=== PATIENT | male | born 1970 ===

== ENCOUNTER 2021-03-26 08:20 | Inpatient (IN) ==
[~2021-03-26 08:20] MED LIST: CYTARABINE IVPB SCH; NS 0.9% IVPB SCH
[2021-03-26] MEDS ORDERED: Ondansetron ODT 4 mg TAB 4 MG TAB PO PRN (09:33)
[2021-03-26] MEDS: prednisoLONE 1% OPHTH.SUSP 5 ML OPHTH.SUSP BOTH EYES SCH ×6 (17:23→22:09)
[2021-03-26] MEDS ORDERED: CYTARABINE IVPB ONE (21:00)
[2021-03-26] MEDS ORDERED: NS 0.9% IVPB ONE (21:00)
[2021-03-27 05:38] LABS: ABS Lymphocytes 0.1 10^3/ul (1.0-4.8); ABS Monocytes 0.7 10^3/ul (0-0.8); ABS Neutrophils 16.8 10^3/ul (1.5-7.7); Hematocrit 40 % (42-52); Hemoglobin 14.1 g/dL (14.0-18.0); Lymphocyte % 0.8 %; Mean Corpuscular HGB Conc 35 g/dL (31-36); Mean Corpuscular Hemoglobin 33 pg (27-31); Mean Corpuscular Volume 94 fL (80-94); Mean Platelet Volume 6.5 fL (7.4-10.4); Platelet Count 275 10^3/uL (150-450); Red Blood Count 4.29 10^6 /uL (4.18-5.48); Red Cell Distribution Width 15 % (10-15); White Blood Count 17.7 10^3/uL (3.5-10.8)
[2021-03-27 05:52] LABS: Albumin 3.9 g/dL (3.2-5.2); Albumin/Globulin Ratio 1.8 (1-3); Calcium 8.7 mg/dL (8.6-10.3); Globulin 2.2 g/dL (2-4); Potassium 4.5 mmol/L (3.5-5.0); Total Bilirubin 0.8 mg/dL (0.2-1.0); Total Protein 6.1 g/dL (6.4-8.9)
[2021-03-27 07:50] VITALS: BP 113/69
[2021-03-27] MEDS: prednisoLONE 1% OPHTH.SUSP 5 ML OPHTH.SUSP BOTH EYES SCH (07:58)
[2021-03-27] MEDS ORDERED: Sulfamethox/Trimethoprim DS TAB 800/160 mg PO SCH (09:00)
== END 2021-03-27 12:30 | disposition home or self-care (01) | DRG 696 ==
LOC: CHOA 08:20 → MEDTELE 08:20
PROVIDERS: ADMIT Internal Medicine Medical Oncology; ATTEND Internal Medicine Medical Oncology

== ENCOUNTER 2021-04-17 07:25 | Inpatient (IN) ==
[~2021-04-17 07:25] MED LIST changes: +[UNRECOGNIZED DRUG - OTHER] IVPB SCH
[2021-04-17] MEDS ORDERED: NS 0.9% 1000 ml BAG 1,000 ML IV SCH (09:15)
[2021-04-17 11:09] LABS: Rapid COVID-19 Molecular Undetected (Undetected)
[2021-04-17] MEDS ORDERED: Ondansetron ODT 4 mg TAB 4 MG TAB PO PRN (13:16)
[2021-04-17] MEDS ORDERED: Sulfamethox/Trimethoprim DS TAB 800/160 mg PO SCH (17:00)
[2021-04-17] MEDS ORDERED: NS 0.9% IVPB ONE (20:00)
[2021-04-17] MEDS ORDERED: CYTARABINE IVPB ONE (20:00)
[2021-04-17] MEDS: prednisoLONE 1% OPHTH.SUSP 5 ML OPHTH.SUSP BOTH EYES SCH (22:04)
[2021-04-18] MEDS: prednisoLONE 1% OPHTH.SUSP 5 ML OPHTH.SUSP BOTH EYES SCH ×2 (02:48→08:20)
[2021-04-18 04:44] LABS: Calcium 8.8 mg/dL (8.6-10.3); Potassium 4.6 mmol/L (3.5-5.0)
[2021-04-18] MEDS ORDERED: NS 0.9% 1000 ml BAG 1,000 ML IV SCH (09:22)
[2021-04-18] MEDS ORDERED: NS 0.9% 1000 ml BAG 1,000 ML IV ONE (09:22)
[2021-04-18 11:17] VITALS: BP 114/63
== END 2021-04-18 11:55 | disposition home or self-care (01) | DRG 696 ==
LOC: CHOA 07:25 → MEDTELE 09:05
PROVIDERS: ADMIT Internal Medicine Hematology & Oncology; ATTEND Internal Medicine Medical Oncology

== ENCOUNTER 2021-05-07 07:39 | Inpatient (IN) ==
[~2021-05-07 07:39] MED LIST changes: -[UNRECOGNIZED DRUG - OTHER] IVPB SCH
[2021-05-07 11:11] LABS: Rapid COVID-19 Molecular Undetected (Undetected)
[2021-05-07] MEDS ORDERED: Ondansetron ODT 4 mg TAB 4 MG TAB PO PRN (11:26)
[2021-05-07] MEDS: NS 0.9% 1000 ml BAG 1,000 ML IV SCH (17:46)
[2021-05-07] MEDS: prednisoLONE 1% OPHTH.SUSP 5 ML OPHTH.SUSP BOTH EYES SCH ×2 (17:46→23:48)
[2021-05-07] MEDS ORDERED: NS 0.9% IVPB ONE (20:00)
[2021-05-07] MEDS ORDERED: CYTARABINE IVPB ONE (20:00)
[2021-05-08 04:42] LABS: Hematocrit 33 % (42-52); Hemoglobin 11.6 g/dL (14.0-18.0); Mean Corpuscular HGB Conc 35 g/dL (31-36); Mean Corpuscular Hemoglobin 34 pg (27-31); Mean Corpuscular Volume 98 fL (80-94); Mean Platelet Volume 6.7 fL (7.4-10.4); Platelet Count 364 10^3/uL (150-450); Red Blood Count 3.41 10^6 /uL (4.18-5.48); Red Cell Distribution Width 19 % (10-15); White Blood Count 25.1 10^3/uL (3.5-10.8)
[2021-05-08 04:53] LABS: ABS Lymphocytes 0.2 10^3/ul (1.0-4.8); ABS Monocytes 0.6 10^3/ul (0-0.8); ABS Neutrophils 24.3 10^3/ul (1.5-7.7)
[2021-05-08 04:58] LABS: Albumin 3.7 g/dL (3.2-5.2); Albumin/Globulin Ratio 2.1 (1-3); Calcium 8.5 mg/dL (8.6-10.3); Globulin 1.8 g/dL (2-4); Potassium 4.1 mmol/L (3.5-5.0); Total Bilirubin 0.7 mg/dL (0.2-1.0); Total Protein 5.5 g/dL (6.4-8.9)
[2021-05-08] MEDS: prednisoLONE 1% OPHTH.SUSP 5 ML OPHTH.SUSP BOTH EYES SCH ×2 (05:46→12:54)
[2021-05-08] MEDS ORDERED: NS 0.9% 1000 ml BAG 1,000 ML IV ONE (09:00)
[2021-05-08] MEDS ORDERED: Sulfamethox/Trimethoprim DS TAB 800/160 mg PO SCH (09:00)
[2021-05-08] MEDS: NS 0.9% 1000 ml BAG 1,000 ML IV SCH (09:42)
[2021-05-08 11:54] VITALS: BP 124/78
== END 2021-05-08 13:00 | disposition home or self-care (01) | DRG 696 ==
LOC: CHOA 07:39 → MEDTELE 09:20
PROVIDERS: ADMIT Internal Medicine Medical Oncology; ATTEND Nurse Practitioner Family

== ENCOUNTER 2021-05-29 07:31 | Inpatient (IN) ==
[~2021-05-29 07:31] MED LIST changes: +D5W IVPB SCH; +OXALIPLATIN IVPB SCH; +RITUXIMAB ABBS IVPB SCH
[2021-05-29] MEDS ORDERED: NS 0.9% 1000 ml BAG 1,000 ML IV SCH (09:00)
[2021-05-29] MEDS ORDERED: Ondansetron ODT 4 mg TAB 4 MG TAB PO PRN (13:35)
[2021-05-29] MEDS ORDERED: Sulfamethox/Trimethoprim DS TAB 800/160 mg PO SCH (14:00)
[2021-05-29 14:23] LABS: Hematocrit 34 % (42-52); Hemoglobin 11.9 g/dL (14.0-18.0); Mean Corpuscular HGB Conc 36 g/dL (31-36); Mean Corpuscular Hemoglobin 36 pg (27-31); Mean Corpuscular Volume 100 fL (80-94); Mean Platelet Volume 6.5 fL (7.4-10.4); Platelet Count 402 10^3/uL (150-450); Red Blood Count 3.35 10^6 /uL (4.18-5.48); Red Cell Distribution Width 21 % (10-15); White Blood Count 30.3 10^3/uL (3.5-10.8)
[2021-05-29 14:38] LABS: Rapid COVID-19 Molecular Undetected (Undetected)
[2021-05-29 14:42] LABS: Albumin 4.1 g/dL (3.2-5.2); Calcium 9.5 mg/dL (8.6-10.3); Globulin 2.1 g/dL (2-4); Potassium 3.9 mmol/L (3.5-5.0); Total Bilirubin 0.7 mg/dL (0.2-1.0); Total Protein 6.2 g/dL (6.4-8.9); eGFR CKD-EPI 106.5 (>60)
[2021-05-29 15:14] LABS: ABS Lymphocytes 0.4 10^3/ul (1.0-4.8); ABS Monocytes 0.8 10^3/ul (0-0.8); ABS Neutrophils 29.1 10^3/ul (1.5-7.7); Lymphocyte % 1.2 %
[2021-05-29] MEDS: prednisoLONE 1% OPHTH.SUSP 5 ML OPHTH.SUSP BOTH EYES SCH (17:44)
[2021-05-29] MEDS ORDERED: CYTARABINE IVPB ONE (19:30)
[2021-05-29] MEDS ORDERED: NS 0.9% IVPB ONE (19:30)
[2021-05-30] MEDS: prednisoLONE 1% OPHTH.SUSP 5 ML OPHTH.SUSP BOTH EYES SCH ×2 (02:46→06:48)
[2021-05-30 07:58] VITALS: BP 105/61
[2021-05-30 08:39] LABS: Hematocrit 36 % (42-52); Hemoglobin 12.5 g/dL (14.0-18.0); Mean Corpuscular HGB Conc 35 g/dL (31-36); Mean Corpuscular Hemoglobin 35 pg (27-31); Mean Corpuscular Volume 100 fL (80-94); Mean Platelet Volume 6.8 fL (7.4-10.4); Platelet Count 473 10^3/uL (150-450); Red Blood Count 3.58 10^6 /uL (4.18-5.48); Red Cell Distribution Width 21 % (10-15); White Blood Count 29.7 10^3/uL (3.5-10.8)
[2021-05-30 08:55] LABS: Albumin 4.1 g/dL (3.2-5.2); Albumin/Globulin Ratio 1.9 (1-3); Globulin 2.2 g/dL (2-4); Potassium 4.4 mmol/L (3.5-5.0); Total Bilirubin 0.6 mg/dL (0.2-1.0); Total Protein 6.3 g/dL (6.4-8.9); eGFR CKD-EPI 100.1 (>60)
[2021-05-30] MEDS ORDERED: Dexamethasone Oral Solution 1 MG/ML 10 ML UDC (10 MG) PO SCH (09:00)
[2021-05-30] MEDS ORDERED: NS 0.9% 1000 ml BAG 1,000 ML IV ONE (09:00)
[2021-05-30 09:14] LABS: ABS Basophils 0.2 10^3/ul (0-0.2); ABS Lymphocytes 0.3 10^3/ul (1.0-4.8); ABS Monocytes 1.7 10^3/ul (0-0.8); ABS Neutrophils 27.5 10^3/ul (1.5-7.7); Lymphocyte % 0.9 %
== END 2021-05-30 11:05 | disposition home or self-care (01) | DRG 691 ==
LOC: CHOA 07:31 → MEDTELE 13:18
PROVIDERS: ADMIT Internal Medicine Medical Oncology; ATTEND Internal Medicine Medical Oncology